=== PATIENT | male | born 1975 | race Two or more races ===

== ENCOUNTER 2018-06-18 04:49 | Emergency (ER) | payer BC, OTHER ==
[~2018-06-18] VITALS: Ht 157.5 cm; Wt 145.1 kg
[~2018-06-18 04:49] MED LIST: ATOR20TA58 PO; LISI1TAB7 PO
[2018-06-18 05:51] LABS: BASO # 0.1 x10^3/uL (0.0-0.2); BASO % 1 % (0-3); EOS # 0.2 x10^3/uL (0.0-0.7); EOS % 2 % (0-3); HEMATOCRIT 50.8 % (39.0-53.0); LYMPH # 2.2 x10^3/uL (1.0-4.8); LYMPH % 20 % (24-48); MEAN CORPUSCULAR HEMOGLOBIN 29 pg (25-35); MEAN CORPUSCULAR HGB CONC 34 g/dL (31-37); MEAN CORPUSCULAR VOLUME 85 fL (79-100); MONO # 0.8 x10^3/uL (0.0-1.1); MONO % 7 % (0-9); NEUT # 8.2 x10^3uL (1.8-7.7); NEUT % 71 % (31-73); PLATELET COUNT 215 x10^3/uL (140-400); RED BLOOD COUNT 5.98 x10^6/uL (4.30-5.70); RED CELL DISTRIBUTION WIDTH 13.2 % (11.5-14.5); WHITE BLOOD COUNT 11.5 x10^3/uL (4.0-11.0)
--- NOTE | 2018-06-18 05:56 | RAD ---
Single view chest dated 06/18/2018. No comparison available. CLINICAL INDICATION: Dizziness and chest pain. FINDINGS: Single upright portable exam performed. Heart and mediastinal contours are within normal limits. Lungs are clear without focal consolidation. Vascular interstitium within normal limits. No pleural effusion or pneumothorax. IMPRESSION: No acute radiographic abnormality. Electronically signed by: Tim Dudley MD (06/18/2018 5:54 AM) [facility]
[2018-06-18] MEDS ORDERED: ONDANSETRON PF 4 MG/2 ML VIAL. IV ONE (06:00)
[2018-06-18] MEDS ORDERED: IV NORMAL SALINE 1,000ML 1,000 ML IV ONE (06:00)
[2018-06-18] MEDS ORDERED: ASPIRIN 325 MG TABLET PO ONE (06:00)
[2018-06-18 06:01] LABS: BARBITURATES NEG (NEG); BENZODIAZEPINES NEG (NEG); CANNABINOIDS NEG (NEG); COCAINE NEG (NEG); METHADONE NEG (NEG); OPIATES NEG (NEG); PHENCYCLIDINE NEG (NEG)
[2018-06-18 06:03] LABS: AMPHETAMINE/METHAMPHETAMINE NEG (NEG)
[2018-06-18 06:04] LABS: ALBUMIN 4.1 g/dL (3.4-5.0); ALBUMIN/GLOBULIN RATIO 1.1 (1.0-1.7); CALCIUM 9.5 mg/dL (8.5-10.1); CREATININE 1.8 mg/dL (0.7-1.3); GFR 41.8; POTASSIUM 4.4 mmol/L (3.5-5.1); TOTAL BILIRUBIN 0.6 mg/dL (0.2-1.0); TOTAL PROTEIN 7.8 g/dL (6.4-8.2)
--- NOTE | 2018-06-18 06:08 | PHYS DOC ---
Past History Past Medical History: Diabetes, High Cholesterol, Hypertension, Other Past Surgical History: Other Alcohol Use: Rarely Drug Use: None Adult General Chief Complaint Chief Complaint: DIZZY/LIGHT HEADED HPI HPI 42-year-old male presents with nausea and dizziness. 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 Around 3:30 AM, he began to feel nauseated and had chills. He thought that he might vomit, but he did not. He also had some dizziness which he describes as a lightheaded feeling. The patient also began to feel more fatigued take in the emergency room. He denies measured fever. He was feeling well up until this episode started. Review of Systems Review of Systems Constitutional: Denies fever or chills [] Eyes: Denies change in visual acuity, redness, or eye pain [] HENT: Denies nasal congestion or sore throat [] Respiratory: Denies cough or shortness of breath [] Cardiovascular: No additional information not addressed in HPI [] GI: Mild abdominal cramping, nausea.[] : Denies dysuria or hematuria [] Musculoskeletal: Denies back pain or joint pain [] Integument: Denies rash or skin lesions [] Neurologic: Denies headache, focal weakness or sensory changes. Dizziness [] Endocrine: Denies polyuria or polydipsia [] All other systems were reviewed and found to be within normal limits, except as documented in this note. Current Medications Current Medications Current Medications Medications (Trade) Dose Ordered Sig/[facility] Start Time Stop Time Status Last Admin Dose Admin Aspirin (Vincent Aspirin) 325 mg 1X ONCE 06/18/18 06:00 06/18/18 06:01 DC 06/18/18 05:56 325 MG Ondansetron HCl (Zofran) 4 mg 1X ONCE 06/18/18 06:00 06/18/18 06:01 DC 06/18/18 05:56 4 MG Sodium Chloride 1,000 ml @ 1,000 mls/hr 1X ONCE 06/18/18 06:00 06/18/18 06:59 06/18/18 05:54 1,000 MLS/HR Allergies Allergies Allergies Coded Allergies Type Severity Reaction Last Updated Verified No Known Drug Allergies 10/09/15 No Physical Exam Physical Exam Constitutional: Well developed, obese, well nourished, no acute distress, non- toxic appearance. [] HENT: Normocephalic, atraumatic, bilateral external ears normal, oropharynx moist, no oral exudates, nose normal. [] Eyes: PERRLA, EOMI, conjunctiva normal, no discharge. [] Neck: Normal range of motion, no tenderness, supple, no stridor. [] Cardiovascular:Heart rate regular rhythm, no murmur [] Lungs & Thorax: Bilateral breath sounds clear to auscultation [] Abdomen: Bowel sounds normal, soft, no tenderness, no masses, no pulsatile masses. [] Skin: Warm, dry, no erythema, no rash. [] Back: No tenderness, no CVA tenderness. [] Extremities: No tenderness, no cyanosis, no clubbing, ROM intact, no edema. [] Neurologic: Alert and oriented X 3, normal motor function, normal sensory function, no focal deficits noted. [] Psychologic: Affect normal, judgement normal, mood normal. [] Current Patient Data Vital Signs Vital Signs Date Time Temp Pulse Resp B/P (MAP) Pulse Ox O2 Delivery O2 Flow Rate FiO2 06/18/18 05:00 97.5 94 20 93 Room Air Lab Results Laboratory Tests Test 06/18/18 05:25 06/18/18 05:31 White Blood Count 11.5 x10^3/uL (4.0-11.0) H Red Blood Count 5.98 x10^6/uL (4.30-5.70) H Hemoglobin 17.0 g/dL (13.0-17.5) Hematocrit 50.8 % (39.0-53.0) Mean Corpuscular Volume 85 fL (79-100) Mean Corpuscular Hemoglobin 29 pg (25-35) Mean Corpuscular Hemoglobin Concent 34 g/dL (31-37) Red Cell Distribution Width 13.2 % (11.5-14.5) Platelet Count 215 x10^3/uL (140-400) Neutrophils (%) (Auto) 71 % (31-73) Lymphocytes (%) (Auto) 20 % (24-48) L Monocytes (%) (Auto) 7 % (0-9) Eosinophils (%) (Auto) 2 % (0-3) Basophils (%) (Auto) 1 % (0-3) Neutrophils # (Auto) 8.2 x10^3uL (1.8-7.7) H Lymphocytes # (Auto) 2.2 x10^3/uL (1.0-4.8) Monocytes # (Auto) 0.8 x10^3/uL (0.0-1.1) Eosinophils # (Auto) 0.2 x10^3/uL (0.0-0.7) Basophils # (Auto) 0.1 x10^3/uL (0.0-0.2) Sodium Level 137 mmol/L (136-145) Potassium Level 4.4 mmol/L (3.5-5.1) Chloride Level 97 mmol/L (98-107) L Carbon Dioxide Level 28 mmol/L (21-32) Anion Gap 12 (6-14) Blood Urea Nitrogen 24 mg/dL (8-26) Creatinine 1.8 mg/dL (0.7-1.3) H Estimated GFR (Cockcroft-Gault) 41.8 BUN/Creatinine Ratio 13 (6-20) Glucose Level 310 mg/dL (70-99) H Calcium Level 9.5 mg/dL (8.5-10.1) Total Bilirubin 0.6 mg/dL (0.2-1.0) Aspartate Amino Transferase (AST) 18 U/L (15-37) Alanine Aminotransferase (ALT) 41 U/L (16-63) Alkaline Phosphatase 73 U/L (46-116) Total Protein 7.8 g/dL (6.4-8.2) Albumin 4.1 g/dL (3.4-5.0) Albumin/Globulin Ratio 1.1 (1.0-1.7) Lipase 138 U/L (73-393) Urine Opiates Screen Neg (NEG) Urine Methadone Screen Neg (NEG) Urine Barbiturates Neg (NEG) Urine Phencyclidine Screen Neg (NEG) Urine Amphetamine/Methamphetamine Neg (NEG) Urine Benzodiazepines Screen Neg (NEG) Urine Cocaine Screen Neg (NEG) Urine Cannabinoids Screen Neg (NEG) Urine Ethyl Alcohol Neg (NEG) Glucose (Fingerstick) 315 mg/dL (70-99) H EKG EKG [] Radiology/Procedures Radiology/Procedures [] Impressions: Single view chest dated 06/18/2018. No comparison available. CLINICAL INDICATION: Dizziness and chest pain. FINDINGS: Single upright portable exam performed. Heart and mediastinal contours are within normal limits. Lungs are clear without focal consolidation. Vascular interstitium within normal limits. No pleural effusion or pneumothorax. IMPRESSION: No acute radiographic abnormality. Electronically signed by: Tim Dudley MD (06/18/2018 5:54 AM) [facility] DICTATED AND SIGNED BY: TIM DUDLEY MD DATE: 06/18/18 0553 CC: CHING BRITO MD; CHENTE TUTTLE ~ Course & Med Decision Making Course & Med Decision Making Pertinent Labs and Imaging studies reviewed. (See chart for details) The patient's labs are significant for a glucose of 315. His anion gap is normal. Patient has been given 1 L fluid. We will repeat his blood sugar. Patient was recently diagnosed with diabetes. He has not his diet so far, but knows he is supposed to. His creatinine is also 1.8. I have no previous for comparison. The patient has urinated in the ED. Repeat blood sugar is 350. I will give him 5 units of insulin. The patient may be coming down with a viral illness. His symptoms cause for his elevated blood sugar. I stressed to him the importance of being compliant with his medications and making diet changes. I believe he is safe to be discharged home at this time. I have advised that he have a repeat lab to recheck his kidney function later today. I also offered the patient admission for further management of his elevated blood sugar and to monitor his kidney function. The patient has elected to go home. He will follow- up with his PCP later today and have his labs repeated. He is stable for discharge at this time. [] Dragon Disclaimer Dragon Disclaimer This electronic medical record was generated, in whole or in part, using a voice recognition dictation system. Departure Departure: Impression: Primary Impression: Viral syndrome Additional Impression: Hyperglycemia due to type 2 diabetes mellitus Disposition: HOME, SELF-CARE Condition: STABLE Referrals: CHENTE TUTTLE (PCP) Patient Instructions: Hyperglycemia, [id number] Additional Instructions: Please call your primary care physician and let them know that her blood sugar was 350 this morning. I gave you 5 units of regular insulin to help bring this down. Ask your doctor to order repeat blood work to evaluate her kidney function as well as your blood sugar. It would be best to have this lab work done later this afternoon. Please be sure to take your diabetes medications as prescribed and drink more water today. 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
[2018-06-18] MEDS ORDERED: ONDA4TAB12 PO (06:28)
[2018-06-18 06:29] LABS: BACTERIA,URINE FEW /HPF (0-FEW); BILIRUBIN,URINE NEG (NEG); CLARITY,URINE HAZY; COLOR,URINE AMBER; GLUCOSE,URINE 100 mg/dL (NEG); NITRITE,URINE NEG (NEG); RBC,URINE RARE /HPF (0-2); SQUAMOUS EPITHELIAL CELL,UR FEW /LPF; UROBILINOGEN,URINE 1 mg/dL (0.2 mg/dL)
[2018-06-18 06:30] LABS: AMORPHOUS SEDIMENT,UR PRESENT /HPF; GRANULAR CASTS,URINE FEW /HPF; HYALINE CASTS, URINE MANY /HPF
[2018-06-18] MEDS ORDERED: INSULIN REGULAR 100 UNIT/ML 3ML VIAL. IV ONE (07:30)
[2018-06-18 07:41] VITALS: BP 123/51
--- NOTE | 2018-06-18 12:27 | EKG ---
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
== END 2018-06-18 07:45 | disposition home or self-care (01) ==
LOC: ER 04:49
DX: B34.9 Viral infection, unspecified (principal); E11.65 Type 2 diabetes mellitus with hyperglycemia; I10 Essential (primary) hypertension; E78.00 Pure hypercholesterolemia, unspecified
CPT/HCPCS: 36415; 71045; 80053; 80307; 81001; 82947; 83690; 84484; 85025; 87086; 93005; 96361; 96374; 96375; 99284; J1815; J2405; J7030